=== PATIENT | female | born 1990 | race Caucasian/White ===

== ENCOUNTER → 2019-01-16 15:55 | Outpatient (CLI) | payer OTHER, SELFPAY ==
--- NOTE | 2019-01-16 16:02 | DI.US.S_ITS ---
PROCEDURE: US OB <= 14 WEEKS FETUS INDICATIONS: DATING OUTSIDE/PRIOR DATING DATA: Last menstrual period (LMP): 11/25/18. LMP-based estimated date of delivery (KELLEN): 09/01/19. First dating scan (date and location): 01/16/19. Estimated date of delivery (KELLEN) from first dating scan: 09/08/19. TECHNIQUE: Real-time scanning was performed of the fetus and maternal pelvic organs, with image documentation. Endovaginal scanning was also performed to better visualize the fetus and maternal ovaries. COMPARISON: None. FINDINGS: Embryo: [place]-rump length measures 6 mm corresponding to 6 weeks 3 days. Heart rate measures 114 beats per minute. Small perigestational sac bleed site measuring roughly 2.0 x 1.0 cm. Measurement variability in dating: +/- 4 weeks by LMP, +/- 7 days by mean sac diameter (use before 6 weeks gestation if crown-rump length not able to be measured), +/- 5 days by crown-rump length (up to 8 weeks 6 days gestation), +/- 7 days by crown-rump length (up to 13 weeks 6 days gestation). Maternal organs: Ovaries within normal limits, with left corpus luteal cyst. Limited images through the kidneys demonstrate no hydronephrosis. IMPRESSION: 1. 6 week 3 day single living IUP corresponding to ultrasound KELLEN of 09/08/19. 2. Small perigestational sac bleed. Dictated by: Holger ENRIQUEZ Interpreted: Alex Jean-Baptiste MD on 01/16/2019 at 17:33 Approved by: Alex Jean-Baptiste M.D. on 01/16/2019 at 18:09
== END ==
PROVIDERS: Visit Provider Specialist
DX: Z34.81 Encounter for supervision of other normal pregnancy, first trimester (principal); Z3A.01 Less than 8 weeks gestation of pregnancy
CPT/HCPCS: 76801; 76817

== ENCOUNTER → 2022-01-24 11:00 | Outpatient (CLI) | payer OTHER, SELFPAY | PROVIDERS: PCP Registered Nurse; Referring Provider Obstetrics & Gynecology; Visit Provider Obstetrics & Gynecology | DX: Z53.20 Procedure and treatment not carried out because of patient's decision for unspecified reasons (principal) ==